=== PATIENT | male | born 1960 ===

== ENCOUNTER 2024-02-14 13:22 | Emergency (ER) | payer SELFPAY ==
[2024-02-14 13:23] VITALS: BP 145/93; PULSE 66; RESP 16; TEMP 35.5; O2SAT 96; BMI 27.8
--- NOTE | 2024-02-14 13:31 | ED.RN ---
PATIENT REQUESTING DIRECTIONS FOR BATHROOM, PATIENT STOOD OUTSIDE BATHROOM AND THEN TRIED TO ENTER ED AREA REQUESTING THE DOORS BE OPENED. RN STATED THERE IS NO REASON FOR YOU TO GO TO THE PATIENT AREA. PT STATES HE IS LOOKING FOR HIS BROTHER. RN INFORMED HIM HE WILL NOT BE ENTERING PATIENT AREA. PT LEFT ED AND HAS NOT RETURNED
== END 2024-02-14 13:30 | disposition left against medical advice (07) ==
LOC: ED 13:46
DX: K59.00 Constipation, unspecified (principal); Z93.3 Colostomy status; Z53.21 Procedure and treatment not carried out due to patient leaving prior to being seen by health care provider